=== PATIENT | female | born 1945 | race Caucasian/White ===

== ENCOUNTER 2018-01-02 10:18 | Emergency (ER) | payer MEDICARE ==
[~2018-01-02] VITALS: Ht 152.4 cm; Wt 63.0 kg
[2018-01-02 10:23] VITALS: BP 137/74; PULSE 81; RESP 16; TEMP 98.7; O2SAT 97
[2018-01-02 10:40] LABS: BILIRUBIN, URINE NEG (NEG); BLOOD, URINE SMALL (NEG); GLUCOSE,URINE NEG (NEG); KETONE, URINE NEG (NEG); NITRITE,URINE NEG (NEG); PH, URINE 5.5 (5.0-8.5); URINE COLOR YELLOW (YELLW/STRAW); URINE LEUKOCYTE ESTERASE NEG (NEG)
[2018-01-02 10:47] LABS: AMORPHOUS SEDIMENT, URINE MOD; SQUAMOUS EPITHELIAL CELL URINE 0-5 /hpf (0-5)
[2018-01-02 10:48] LABS: HYALINE CAST, URINE 0-2 /lpf (RARE)
--- NOTE | 2018-01-02 11:04 | PD ---
HPI Chief Complaint: Abdominal Pain Time Seen by Provider: 11:03 Travel History International Travel<30 days: No Contact w/Intl Traveler<30days: No Traveled to known affect area: No History of Present Illness HPI 72-year-old female came to the emergency room with history of left lower quadrant abdominal pain since last night. Patient says last night the pain was associated with cramping and colicky in nature would come and go. Today it is not as severe and not as colicky but it still there. She describes the pain to be sharp and burning in sensation. The pain is nonradiating. It is there constantly and worse when she tries to push on it. She has history of diverticulitis and had a colonoscopy done not too long ago that showed diverticulosis again. She has been nauseous couple times but has not vomited. Yesterday she had few episodes of diarrhea with blood but that has stopped as per the patient. Last night she also had some chills but her vital signs have been stable in the emergency room. FOR[facility]LY [facility], LATER [facility] Past Medical History Narrative Medical List of her past medical, surgical, social and family history reviewed from the nursing note. Social History Tobacco Use: No Allergies-Medications (Allergen,Severity, Reaction): Coded Allergies: amoxicillin (Verified Allergy, Unknown, Nausea/Vomiting, 01/02/18) clavulanic acid (Verified Allergy, Unknown, Nausea/Vomiting, 01/02/18) codeine (Verified Allergy, Unknown, 01/02/18) metronidazole (Verified Allergy, Unknown, Nausea/Vomiting, 01/02/18) Comments List of her allergies reviewed from the nursing note. Reported Meds & Prescriptions Reported Meds & Active Scripts Active Reglan (Metoclopramide HCl) 5 Mg Tab 5 Mg PO TIDAC Clindamycin (Clindamycin HCl) 300 Mg Cap 300 Mg PO TID 10 Days Ciprofloxacin (Ciprofloxacin HCl) 500 Mg Tab 500 Mg PO BID 10 Days Reported Tranxene T (Clorazepate Dipotassium) 7.5 Mg Tab 7.5 Mg PO TID PRN Simvastatin 10 Mg Tab 10 Mg PO DAILY Amoxicillin 875 Mg Tab 875 Mg PO BID Narrative Medication List of her home medications reviewed from the nursing note. Review of Systems Except as stated in HPI: all other systems reviewed are Neg Gastrointestinal: Positive: Nausea, Diarrhea, Abdominal Pain Physical Exam Narrative GENERAL: Awake, alert, anxious, moderate to SKIN: Focused skin assessment warm/dry. HEAD: Atraumatic. Normocephalic. EYES: Pupils equal and round. No scleral icterus. No injection or drainage. ENT: No nasal bleeding or discharge. Mucous membranes pink and moist. NECK: Trachea midline. No JVD. CARDIOVASCULAR: Regular rate and rhythm. No murmur appreciated. RESPIRATORY: No accessory muscle use. Clear to auscultation. Breath sounds equal bilaterally. GASTROINTESTINAL: Abdomen soft, left lower quadrant tenderness, nondistended. Hepatic and splenic margins not palpable. MUSCULOSKELETAL: No obvious deformities. No clubbing. No cyanosis. No edema. NEUROLOGICAL: Awake and alert. No obvious cranial nerve deficits. Motor grossly within normal limits. Normal speech. PSYCHIATRIC: Appropriate mood and affect; insight and judgment normal. Data Data Last Documented VS Orders Orders Urinalysis - C+S If Indicated (01/02/18 10:25) Complete Blood Count With Diff (01/02/18 11:07) Comprehensive Metabolic Panel (01/02/18 11:07) Lipase (01/02/18 11:07) Ct Abd/Pel W/O Iv Contrast (01/02/18 11:07) Iv Access Insert/Monitor (01/02/18 11:07) Ecg Monitoring (01/02/18 11:07) Oximetry (01/02/18 11:07) Sodium Chlor 0.9% 1000 Ml Inj (Ns 1000 M (01/02/18 11:07) Sodium Chloride 0.9% Flush (Ns Flush) (01/02/18 11:15) Ketorolac Inj (Toradol Inj) (01/02/18 11:15) Blood Culture (01/02/18 11:58) Ciprofloxacin 400 Mg Premix (Cipro 400 M (01/02/18 12:00) Clindamycin 600 Mg/Ns Premix (Cleocin 60 (01/02/18 12:00) Ed Discharge Order (01/02/18 12:07) Labs Laboratory Tests Test 01/02/18 10:25 01/02/18 11:25 Urine Collection Type CLEAN CATCH Urine Color YELLOW Urine Turbidity CLEAR Urine pH 5.5 Urine Specific [place] 1.015 Urine Protein NEG mg/dL Urine Glucose (UA) NEG mg/dL Urine Ketones NEG mg/dL Urine Occult Blood SMALL Urine Nitrite NEG Urine Bilirubin NEG Urine Urobilinogen 0.2 MG/DL Urine Leukocyte Esterase NEG Urine RBC 4-9 /hpf Urine Squamous Epithelial Cells 0-5 /hpf Urine Amorphous Sediment MOD Urine Hyaline Casts 0-2 /lpf Microscopic Urinalysis Comment CULT NOT INDICATED Urine Collection Time 1025 White Blood Count 15.1 TH/MM3 Red Blood Count 5.06 MIL/MM3 Hemoglobin 14.4 GM/DL Hematocrit 44.0 % Mean Corpuscular Volume 86.8 FL Mean Corpuscular Hemoglobin 28.6 PG Mean Corpuscular Hemoglobin Concent 32.9 % Red Cell Distribution Width 12.3 % Platelet Count 267 TH/MM3 Mean Platelet Volume 7.8 FL Neutrophils (%) (Auto) 71.4 % Lymphocytes (%) (Auto) 19.9 % Monocytes (%) (Auto) 7.5 % Eosinophils (%) (Auto) 0.6 % Basophils (%) (Auto) 0.6 % Neutrophils # (Auto) 10.8 TH/MM3 Lymphocytes # (Auto) 3.0 TH/MM3 Monocytes # (Auto) 1.1 TH/MM3 Eosinophils # (Auto) 0.1 TH/MM3 Basophils # (Auto) 0.1 TH/MM3 CBC Comment AUTO DIFF Differential Total Cells Counted 100 Neutrophils % (Manual) 62 % Lymphocytes % 29 % Monocytes % 7 % Eosinophils % 1 % Neutrophils # (Manual) 9.5 TH/MM3 Metamyelocytes 1 % Differential Comment FINAL DIFF MANUAL Platelet Estimate NORMAL Platelet Morphology Comment NORMAL Blood Urea Nitrogen 14 MG/DL Creatinine 1.10 MG/DL Random Glucose 102 MG/DL Total Protein 8.3 GM/DL Albumin 3.8 GM/DL Calcium Level 9.0 MG/DL Alkaline Phosphatase 115 U/L Aspartate Amino Transf (AST/SGOT) 23 U/L Alanine Aminotransferase (ALT/SGPT) 26 U/L Total Bilirubin 1.4 MG/DL Sodium Level 137 MEQ/L Potassium Level 3.7 MEQ/L Chloride Level 104 MEQ/L Carbon Dioxide Level 25.3 MEQ/L Anion Gap 8 MEQ/L Estimat Glomerular Filtration Rate 49 ML/MIN Lipase 93 U/L [facility] Medical Decision Making Medical Screen Exam Complete: Yes Emergency Medical Condition: Yes Medical Record Reviewed: Yes Differential Diagnosis Acute diverticulitis, colitis, abdominal pain NOS, UTI Narrative Course 12:13 PM blood test results are back and patient has leukocytosis. CT scan is suggestive of acute diverticulitis. Patient is getting IV Cipro and IV clindamycin since she is allergic to Flagyl as well as Augmentin. She will be discharged home on these p.o. medications and asked to follow-up with her colorectal specialist. Procedures EKG Prior to Arrival: No Diagnosis Primary Impression: Abdominal pain Qualified Codes: R10.32 - Left lower quadrant pain Additional Impression: Acute diverticulitis Additional Instructions: Take the medication as per prescription direction. Take clear liquid diet for the next 24-48 hours. Please follow-up with your primary care and your colorectal specialist. Return to the ER if condition worsens or any other new concerns. Eat lots of yogurt or [id number] probiotics to prevent C. difficile colitis due to the antibiotics. Med/Other Pt SpecificInfo: Prescription(s) given Scripts Metoclopramide (Reglan) 5 Mg Tab 5 MG PO TIDAC, #12 TAB 0 Refills Prov: Young Colvin MD 01/02/18 Clindamycin (Clindamycin) 300 Mg Cap 300 MG PO TID for Infection for 10 Days, CAP 0 Refills Prov: Young Colvin MD 01/02/18 Ciprofloxacin (Ciprofloxacin) 500 Mg Tab 500 MG PO BID for Infection for 10 Days, #20 TAB 0 Refills Prov: Young Colvin MD 01/02/18 Disposition: 01 DISCHARGE HOME Condition: Stable Young Colvin MD Jan 02, 2018 11:04
[2018-01-02] MEDS ORDERED: SIMV10TA PO (11:06)
[2018-01-02] MEDS ORDERED: CHLO7.5 PO (11:06)
[2018-01-02] MEDS ORDERED: AMOX875T PO (11:06)
[2018-01-02] MEDS ORDERED: SODIUM CHLOR 0.9% 1000 ML INJ 1,000 ML IV SCH (11:07)
[2018-01-02] MEDS ORDERED: SODIUM CHLORIDE 0.9% FLUSH 10 ML FLUSH IV FLUSH PRN (11:15)
[2018-01-02] MEDS ORDERED: KETOROLAC TROMETHAMINE 30 MG/ML (IVP) VIAL IVP ONE (11:15)
[2018-01-02 11:39] LABS: AUTOMATED NEUTROPHIL # 10.8 TH/MM3 (1.8-7.7); BASOPHIL # 0.1 TH/MM3 (0-0.2); BASOPHIL % 0.6 % (0.0-2.0); EOSINOPHIL # 0.1 TH/MM3 (0-0.4); EOSINOPHIL % 0.6 % (0.0-4.0); HEMOGLOBIN 14.4 GM/DL (11.6-15.3); LYMPH % 19.9 % (9.0-44.0); MEAN CELL VOLUME 86.8 FL (80.0-100.0); MEAN CORPUSCULAR HEMOGLOBIN 28.6 PG (27.0-34.0); MEAN CORPUSCULAR HGB CONC 32.9 % (32.0-36.0); MEAN PLATELET VOLUME 7.8 FL (7.0-11.0); MONO % 7.5 % (0.0-8.0); MONOCYTE # 1.1 TH/MM3 (0-0.9); NEUT % 71.4 % (16.0-70.0); PLATELET COUNT 267 TH/MM3 (150-450); RED BLOOD COUNT 5.06 MIL/MM3 (4.00-5.30); RED CELL DISTRIBUTION WIDTH 12.3 % (11.6-17.2); WHITE BLOOD COUNT 15.1 TH/MM3 (4.0-11.0)
[2018-01-02 11:45] LABS: CHLORIDE 104 MEQ/L (98-107); SODIUM (NA) 137 MEQ/L (136-145)
[2018-01-02 11:49] LABS: ALBUMIN 3.8 GM/DL (3.4-5.0); BICARBONATE 25.3 MEQ/L (21.0-32.0); GLUCOSE,RANDOM 102 MG/DL (74-106)
[2018-01-02 11:50] LABS: BLOOD UREA NITROGEN 14 MG/DL (7-18)
[2018-01-02 11:52] LABS: ALT (GPT) 26 U/L (10-53); AST (GOT) 23 U/L (15-37); GLOMERULAR FILTRATION RATE 49 ML/MIN (>89)
--- NOTE | 2018-01-02 11:53 | RADRPT ---
EXAM DATE: 01/02/2018 11:47 AM EDT AGE/SEX: 72 years / Female INDICATIONS: Left lower quadrant pain. CLINICAL DATA: This is the patient's initial encounter. Patient reports that signs and symptoms have been present for 2 days and indicates a pain score of 8/10. MEDICAL/SURGICAL HISTORY: Diverticulitis. Appendectomy. Cholecystectomy. Left oophorectomy. RADIATION DOSE: 9.07 CTDI (mGy) COMPARISON: No prior exams available for comparison. TECHNIQUE: Multiple contiguous axial images were obtained through the abdomen. Images were obtained using multiple row detector helical technique. Using automated exposure control and adjustment of the mA and/or kV according to patient size, radiation dose was kept as low as reasonably achievable to o btain optimal diagnostic quality images. DICOM format image data is available electronically for rev iew and comparison. FINDINGS: The limited portion of lung base visualized is clear. The appearance of the liver, spleen, pancreas, adrenal glands and kidneys is within normal limits. The abdominal aorta demonstrates diffuse atherosclerotic plaquing but appears normal in caliber. No r etroperitoneal adenopathy is seen. The visualized loops of small and large bowel in the upper abdomen are unremarkable. No free air free fluid is seen. The anterior abdominal wall is intact. Imaging through the pelvis demonstrates an area of inflammatory change surrounding the distal sigmoid colon in the left lower quadrant. There are several diverticuli in this area. Findings would be most consistent with acute diverticulitis. No free air is seen. No abscess collection is identified. There is no free fluid within the pelvis. No iliac or inguinal adenopathy is identified. The visualized bony structures are grossly intact. CONCLUSION: 1. Inflammatory changes surrounding the distal sigmoid colon in the left lower quadrant most consist ent with an area of acute diverticulitis. No free air or drainable abscess collection is identified. Electronically signed by: Michael Aguirre MD 01/02/2018 11:52 AM EDT
[2018-01-02 11:54] LABS: TOTAL BILIRUBIN ADULT 1.4 MG/DL (0.2-1.0); TOTAL PROTEIN 8.3 GM/DL (6.4-8.2)
[2018-01-02 11:55] LABS: ALKALINE PHOSPHATASE 115 U/L (45-117)
[2018-01-02] MEDS ORDERED: CIPROFLOXACIN 400 MG PREMIX 200 ML IV ONE (12:00)
[2018-01-02] MEDS ORDERED: CLINDAMYCIN 600 MG/NS PREMIX 50 ML IV ONE (12:00)
[2018-01-02] MEDS ORDERED: CLIN300C5 PO (12:15)
[2018-01-02] MEDS ORDERED: CIPR500T2 PO (12:15)
[2018-01-02 12:56] LABS: LYMPHOCYTES 29 % (9-44); METAMYELOCYTES 1 % (0-1); MONOCYTES 7 % (0-8); NEUTROPHIL # MANUAL DIFF 9.5 TH/MM3 (1.8-7.7); POLYS (SEG NEUTROPHILS) 62 % (16-70)
[2018-01-02 13:19] VITALS: BP 128/69; PULSE 68; RESP 20; O2SAT 98
[2018-01-02 13:20] VITALS: O2SAT 98
[2018-01-02] MEDS ORDERED: REGL5TAB PO (14:16)
[2018-01-02 14:17] VITALS: BP 114/66; PULSE 62; RESP 16; O2SAT 97
== END 2018-01-02 14:45 | disposition home or self-care (01) ==
LOC: PHED 10:18
DX: R10.32 Left lower quadrant pain (principal); K57.92 Diverticulitis of intestine, part unspecified, without perforation or abscess without bleeding
CPT/HCPCS: 74176; 80053; 81001; 83690; 85007; 85027; 87040; 96361; 96365; 96367; 96375; 99284; J0744; J1885; J7030